=== PATIENT | male | born 1965 | race Caucasian/White ===

== ENCOUNTER 2020-11-21 14:49 | Emergency (ER) | payer MEDICAID, SELFPAY ==
[~2020-11-21] VITALS: Ht 162.6 cm; Wt 70.3 kg
[2020-11-21 16:14] VITALS: BP 131/67; Ht 162.6 cm; Wt 70.3 kg
== END 2020-11-21 17:27 | disposition home or self-care (01) ==
LOC: ED 14:49
DX: R05 Cough (principal); M79.10 Myalgia, unspecified site; M54.5 Low back pain